=== PATIENT | female | born 1975 | race Caucasian/White ===

== ENCOUNTER 2017-07-24 06:12 | Day surgery (SDC) | payer OTHER ==
[~2017-07-24] VITALS: Ht 162.6 cm; Wt 101.6 kg
[~2017-07-24 06:12] MED LIST: LORATADINE10 MG PO; MELATIN3 MG PO; MULTIVITAMINS1 EAC8 PO; PERCOCET 7.5-31 EACH PO; RANITIDINE HCL150 MG PO
--- NOTE | 2017-07-24 09:36 | NUR ---
PT ALERT AND ORIENTED. PT WAS WAITING FOR AND WILLIE. SHE SEEMED PLEASANT, SUPPORTED BY HER WHO HAD STEPPED OUT FOR A MOMENT. PT REQUESTED PRAYER, WILL FOLLOW NEEDED
--- NOTE | 2017-07-24 11:30 | NUR ---
07/24/17 1130 Cj Roche MEDICATED FOR 6/10 CRAMPING ABDOMINAL PAIN PER EMAR.
--- NOTE | 2017-07-24 12:09 | NUR ---
ATE CRACKERS AND BREONNA, REQ PAIN MEDS FOR 5/10 PAIN. PERCOCET GIVEN.
--- NOTE | 2017-07-24 12:38 | NUR ---
PT REQUESTS TO GET UP AND TRY AND USE THE BATHROOM. SHE HAS LITTLE SUCCUESS VOIDING APPROXIMATELY 15ML. SHE REPORTS A LOT OF CRAMPING, SHE HAS ALREADY HAD PAIN PILLS.
[2017-07-24] MEDS ORDERED: IBUPROFEN800 MG PO (12:59)
[2017-07-24] MEDS ORDERED: PERCOCET 5-3251 EACH PO (12:59)
--- NOTE | 2017-07-24 13:30 | NUR ---
LE 1320: PT IS C/O WORSENING CRAMPING/PAIN IN LOWER ABDOMEN DESPITE 2 PERCOCET. PT BLADDERS SCANNED FOR APPROX. 100ML. CALL PLACED TO DR. ARZATE, SHE ORDERED PROMETHAZINE 25MG PO NOW AND OXYCODONE 5MG NOW. ORDER PUT IN COMPUTER AND PHARMACY NOTIFIED.
--- NOTE | 2017-07-24 14:07 | NUR ---
PT IS UP OOB TO BATHROOM WITH STANDBY ASSIST. PT REPORTS THAT HER PAIN IS MUCH BETTER NOW AND BEARABLE.
--- NOTE | 2017-08-06 10:16 | OR ---
[facility] [address] [facility] [place], [place] [address] Signed DATE OF OPERATION: 07/24/2017 SURGEON: Coty Arzate MD PREOPERATIVE DIAGNOSIS: 41-year-old, 3, para 3 with menorrhagia, longstanding and worsening. POSTOPERATIVE DIAGNOSIS: 41-year-old, 3, para 3 with menorrhagia, longstanding and worsening, and thickened endometrium near ostia. PROCEDURE: Hysteroscopy, dilation with MyoSure hysteroscope and NovaSure endometrial ablation. ANESTHESIA: General endotracheal per Adams Flynn CRNA. INTRAVENOUS FLUIDS: 1000 mL of Lactated Ringer's. URINE OUTPUT: 20 mL per straight cath. ESTIMATED BLOOD LOSS: 30 mL. HYSTEROSCOPE: 1500 mL in with 270 mL deficit. FINDINGS: Mildly enlarged uterus sounded to 11 cm and a mildly thickened endometrium near the ostia on both sides of the uterus. PATHOLOGY: Endometrial curettings. PROCEDURE TECHNIQUE: Patient was taken back to the operating room with IV fluids hanging. She was placed on the operating table in supine position, underwent general endotracheal anesthesia with rapid sequence intubation and was subsequently re-positioned in dorsal lithotomy Electronically Signed By: COTY ARZATE MD 08/06/17 1016 PATIENT NAME: TAMANNA GILL OPERATIVE REPORT DATE OF : 75 REPORT #: [id number] PHYSICIAN: COTY ARZATE MD PCP: ODILON MEDINA DO REPORT IS CONFIDENTIAL AND NOT TO BE RELEASED WITHOUT AUTHORIZATION [facility] [address] [place], [place] [address] Signed position in [facility]. She was then prepped and draped in normal sterile fashion and a weighted sterile speculum was placed into the vagina and a curved retractor used to visualize the cervix. A single-tooth tenaculum was placed onto the anterior lip of the cervix and the uterus was then sounded to 11 cm. It was then serially dilated and the MyoSure hysteroscope placed into the cervical canal and subsequently into the endometrial cavity to visualize the uterus. The MyoSure device was then used to remove the thickened tissue from the areas near the ostia. The hysteroscope was then removed and the NovaSure wand was then placed into the endometrial cavity, which again was measured and was consistent with an enlarged uterus with cavity itself approximately 9 cm in length, the width was 4.4 cm and the procedure went for approximately 51 seconds, the ablation. Once that was complete, the NovaSure wand was then removed and visualized and found to be smoking and blackened. All instruments were then removed from the uterus and cervix. The single-tooth tenaculum removed as well and minimal bleeding was noted. Sponge and instrument counts were correct. The patient was then awakened and extubated and taken to recovery room in stable condition. There were no complications. MD ANTHONY Campbell/ALEX /[id number] Copies: ~ Electronically Signed By: COTY ARZATE MD 08/06/17 [facility] PATIENT NAME: TAMANNA GILL OPERATIVE REPORT DATE OF : 75 REPORT #: [id number] PHYSICIAN: COTY ARZATE MD PCP: ODILON MEDINA DO REPORT IS CONFIDENTIAL AND NOT TO BE RELEASED WITHOUT AUTHORIZATION
== END 2017-07-24 14:30 | disposition home or self-care (01) ==
LOC: DS 06:12
PROVIDERS: Obstetrics & Gynecology
PROC: 0U5B8ZZ Destruction of Endometrium, Via Natural or Artificial Opening Endoscopic (ICD-10-PCS; principal; 2017-07-24 09:00)
PROC: 0UDB7ZX Extraction of Endometrium, Via Natural or Artificial Opening, Diagnostic (ICD-10-PCS; 2017-07-24 09:00)
DX: N92.0 Excessive and frequent menstruation with regular cycle (principal); R93.8 Abnormal findings on diagnostic imaging of other specified body structures; K21.9 Gastro-esophageal reflux disease without esophagitis; J30.9 Allergic rhinitis, unspecified; Z98.51 Tubal ligation status; Z87.891 Personal history of nicotine dependence; Z79.899 Other long term (current) drug therapy
CPT/HCPCS: 00944; J1885; J2405; J2704; J2765; J3010; J7120

== ENCOUNTER 2020-05-14 05:50 | Day surgery (SDC) | payer OTHER ==
[~2020-05-14] VITALS: Ht 162.6 cm; Wt 95.9 kg
--- NOTE | ~2020-05-14 | OR ---
[facility] [address] [place], [place] [address] Draft DATE OF OPERATION: 05/14/2020 SURGEON: Nina Campos DO PREOPERATIVE DIAGNOSES: 1. Abnormal uterine bleeding. 2. Dysmenorrhea. 3. Post ablation syndrome. POSTOPERATIVE DIAGNOSES: 1. Abnormal uterine bleeding. 2. Dysmenorrhea. 3. Post ablation syndrome. PROCEDURES PERFORMED: 1. Total laparoscopic hysterectomy. 2. Bilateral salpingectomy. 3. Cystoscopy. ASSISTANTS: 1. Jareth Morales MD. 2. Jenny Alanis DO. ANESTHESIA: General. ESTIMATED BLOOD LOSS: 20 mL. SPECIMENS: Uterus, cervix, and bilateral fallopian tubes. FINDINGS: Normal external genitalia with normal clitoris, urethral meatus, bilateral Rillito's and Bartholin's. Normal vagina and normal-appearing cervix. The uterus is status post endometrial ablation and the uterine cavity is ablated. On laparoscopy, status post tubal ligation with Falope rings. Normal bilateral ovaries and normal-appearing uterus. Normal bladder with bilateral ureteral jets on cystoscopy. Hemostasis at the end of the procedure. PATIENT NAME: TAMANNA GILL OPERATIVE REPORT DATE OF : 75 REPORT #: [id number] PHYSICIAN: NINA CAMPOS DO PCP: PAZ MCMILLAN PA-C REPORT IS CONFIDENTIAL AND NOT TO BE RELEASED WITHOUT AUTHORIZATION [address], [place] [address] Draft COMPLICATIONS: None. INDICATIONS: Ms. Gill is a very pleasant 44-year-old G3, P4 female, who presents with a history of abnormal uterine bleeding and dysmenorrhea. She underwent endometrial ablation in 2017, and then has developed worsening dysmenorrhea and irregular cycles. She was scheduled for a total laparoscopic hysterectomy, bilateral salpingectomy, cystoscopy. Risks, benefits, and alternatives were discussed in detail with the patient. The patient understands and wished to proceed with the procedure. TECHNIQUE: The patient was taken to the operating room. A time-out was performed to confirm correct patient and correct procedure. General anesthesia was adequately established. The patient was prepped and draped in dorsal lithotomy position with feet in Yellofin stirrups. were on and running. The patient received 2 g of Ancef preoperatively per SCIP protocol and 5000 units of heparin based on her Caprini score. A weighted speculum was placed in the vagina. The anterior lip of the cervix was grasped with an Allis clamp. The cervix was gently dilated using Hegar dilators. However, the uterine cavity was noted to be ablated and entry into the uterine cavity was not easily achieved. A Machado catheter was inserted and attention was then turned to the base of the umbilicus. The base of the umbilicus was infiltrated with 0.25% Marcaine with epinephrine and the skin was incised. The fascia was grasped with hemostats, elevated, and entered sharply with Metzenbaum scissors. Stay sutures of 0 Vicryl placed in the superior and inferior edges of the fascial incision and the peritoneum was entered bluntly. A Diaz port was then placed and pneumoperitoneum was easily established. Survey of the abdomen and pelvis was performed with the above findings. At this point, a VCare uterine manipulator was placed under direct visualization to avoid perforation. Excellent positioning of the VCare manipulator was observed and the surgeon's gloves were changed and attention was turned to the hysterectomy. A 5 mm rehab assistant port was placed under direct visualization in the left lower quadrant and an 8 mm expanding port was placed in the right lower quadrant under direct visualization. The patient is status post Falope ring tubal ligation and residual fallopian tubes were grasped, elevated, and fulgurated along the mesosalpinx using the LigaSure device. Excellent hemostasis was appreciated. The left uteroovarian ligament was fulgurated and divided and the left round ligament was fulgurated and divided. The leaves of the broad ligament were divided. The anterior leaf was brought down to the cervical cup and the bladder dissected well below the cervical cup. The posterior leaf was divided down to the uterosacral ligament and across the posterior cul-de-sac. The uterine vessels were identified, fulgurated and divided with excellent hemostasis. The process was repeated on the right with fulguration, division of the utero-ovarian ligament, round ligament, and the broad ligament was dissected off. The PATIENT NAME: TAMANNA GILL OPERATIVE REPORT DATE OF : 75 REPORT #: [id number] PHYSICIAN: NINA CAMPOS DO PCP: PAZ MCMILLAN PA-C REPORT IS CONFIDENTIAL AND NOT TO BE RELEASED WITHOUT AUTHORIZATION [facility] [address] [facility] [place] [address] Draft uterine vessels were fulgurated and divided with excellent hemostasis. Colpotomy was then performed using Sonicision device in a circumferential manner without difficulty. The uterus and cervix were delivered through the vaginal opening without difficulty and the vagina was stuffed with a wet lap and a glove to maintain pneumoperitoneum. The colpotomy was then closed using V-Loc suture with an Endostitch device with careful attention to incorporate the uterosacral ligaments and vaginal epithelium with each bite. Excellent vaginal support and hemostasis appreciated. The pelvis was irrigated and again found to be hemostatic. Pneumoperitoneum was reduced and trocars were removed. The fascia was repaired at the umbilicus with 0 Vicryl in a running nonlocked manner and secured with stay sutures. Skin was reapproximated using 4-0 Monocryl. Cystoscopy was then performed. The Machado catheter was removed and a 70-degree cystoscope was placed in the urethral meatus and advanced under direct visualization into the bladder. Normal bladder and bilateral ureteral jets were appreciated. The cystoscope was removed and a Machado catheter re-inserted. The patient was then taken to PACU in good and stable condition. Sponge, needle, and instrument counts were correct x2 at the end of the procedure. Dr. Morales and Dr. Alanis were present and participated in all portions of the procedure. Nina Campos DO JTIEN/ALEX /[id number] Copies: ~ PATIENT NAME: TAMANNA GILL OPERATIVE REPORT DATE OF : 75 REPORT #: [id number] PHYSICIAN: NINA CAMPOS DO PCP: PAZ MCMILLAN PA-C REPORT IS CONFIDENTIAL AND NOT TO BE RELEASED WITHOUT AUTHORIZATION
[~2020-05-14 05:50] MED LIST changes: +ACID-PEP20 MG PO; +EMERGEN-C 500500 MG PO; +IBUPROFEN800 MG PO; +MAG-OXIDE400 MG PO; +OSTERA TABLET1 EACH PO; +PERCOCET 5-3251 EACH PO
[2020-05-14] MEDS ORDERED: LEVO-T50 MCG PO (06:19)
--- NOTE | 2020-05-14 09:18 | NUR ---
05/14/20 0918 Karlene,Dia 0912 PT ARRIVED TO PACU ON 6L VIA MASK, PT ASLEEP WITH ORAL AIRWAY IN PLACE. RESP EVEN AND UNLABROED, PT NONAROUSABLE TO TACTILE STIMULI AND VSS.
[2020-05-14] MEDS ORDERED: MOTRIN IB200 MG PO (10:24)
[2020-05-14] MEDS ORDERED: NORCO 5-325 TA1 EACH PO (10:24)
--- NOTE | 2020-05-14 10:54 | NUR ---
LE 1040: PATIENT PUSHES HER CALL LIGHT AND REPORTS "THE PAIN HASN'T LET UP AT ALL." CALL TO DR. MARIE IN OR 4. SPOKE WITH DO MAGANA CRNA. NEW ORDERS ARE RECEIVED. LE 1050: PATIENT CONTINUES TO HAVE A GRIMACE ON HER FACE 100% OF THE TIME. SHE IS MOANING WITH EVERY EXHALE. PRN GIVEN FOR PAIN. I REMAIN IN THE ROOM WITH PATIENT. CONTINUOUS PULSE OXIMETER IS IN PLACE.
--- NOTE | 2020-05-14 10:54 | NUR ---
LE 0950: PATIENT IS UP TO THE BATHROOM WITH MY STANDBY ASSIST. PATIENT IS UNABLE TO VOID. MASTER-PAD AND STRETCH KNIT BRIEFS ARE GIVEN. ICED WATER IS GIVEN. SPOUSE IS AT THE BEDSIDE. PATIENT IS BACK IN BED. JAIRO HUGGER IS ON WARM. CALL LIGHT IS WITHIN REACH.
--- NOTE | 2020-05-14 11:03 | NUR ---
ICE TO ABDOMEN. PATIENT'S OXYGEN SATURATION DROPS TO 92% ON RA. I REMAIN IN THE ROOM WITH THE PATIENT. CONTINUOUS PULSE OXIMETER IN PLACE.
--- NOTE | 2020-05-14 11:06 | NUR ---
PATIENT'S RESPIRATIONS SLOW TO 9/MINUTE. OXYGEN SATURATION DECREASES TO 88% - 94% ON RA. WILL CONTINUE TO MONITOR.
--- NOTE | 2020-05-14 11:10 | NUR ---
HOB ELEVATED. PATIENT CONTINUES TO HAVE A DRY COUGH. PATIENT TAKES A SIP OF WATER AND TOLERATES THAT WELL.
--- NOTE | 2020-05-14 11:13 | NUR ---
IV OFIRMEV IS INFUSED. PATIENT'S RESPIRATIONS HAVE SLOWED TO 6/MINUTE. I REMAIN PRESENT WITH HER. CONTINUOUS PULSE OXIMETER IN PLACE. OXYGEN SATURATION 92% ON RA. PULSE 75. BP 123/71.
--- NOTE | 2020-05-14 11:54 | NUR ---
PATIENT IS ASLEEP. RESPIRATIONS ARE EVEN AND UNLABORED. SPOUSE REMAINS AT THE BEDSIDE. CONTINUOUS PULSE OXIMETER REMAINS IN PLACE. PATIENT DOES NOT WAKE WHEN VITALS ARE TAKEN. CALL LIGHT REMAINS WITHIN REACH.
--- NOTE | 2020-05-14 13:12 | NUR ---
PATIENT IS UP TO THE BATHROOM WITH MY STANDBY. SHE AMBULATES WELL AND VOIDS 500 ML CLEAR, YELLOW URINE. SHE IS BACK IN BED. JAIRO YAJAIRAGGER REMAINS ON WARM. PUDDING AND MORE ICED WATER GIVEN. PATIENT'S SPOUSE REMAINS AT THE BEDSIDE. CALL LIGHT IS WITHIN REACH.
--- NOTE | 2020-05-14 13:59 | NUR ---
LE 1335: PATIENT REPORTS NO NAUSEA AND ASKS FOR THE 2ND PRN "MY PAIN IS GOING UP." DISCHARGE INSTRUCTIONS ARE GIVEN AND SHE AND HER SPOUSE VERBALIZE UNDERSTANDING. PATIENT IS GETTING DRESSED IN THE PRESENCE OF HER . PATIENT TRANSFERS HERSELF TO THE WHEELCHAIR AND THEN TO PERSONAL VEHICLE AND SHE TOLERATES THAT WELL.
== END 2020-05-14 13:50 | disposition home or self-care (01) ==
LOC: DS 05:50 → OPS 05:50 → DS 06:45 → OPS 13:50
PROVIDERS: ATTEND Obstetrics & Gynecology
PROC: 0UT94ZZ Resection of Uterus, Percutaneous Endoscopic Approach (ICD-10-PCS; principal; 2020-05-14 06:45)
PROC: 0UT74ZZ Resection of Bilateral Fallopian Tubes, Percutaneous Endoscopic Approach (ICD-10-PCS; 2020-05-14 06:45)
DX: N99.85 Post endometrial ablation syndrome (principal); N83.8 Other noninflammatory disorders of ovary, fallopian tube and broad ligament; N80.0 Endometriosis of uterus; D26.1 Other benign neoplasm of corpus uteri; K21.9 Gastro-esophageal reflux disease without esophagitis; J30.2 Other seasonal allergic rhinitis; E03.9 Hypothyroidism, unspecified; Z98.51 Tubal ligation status; Z79.899 Other long term (current) drug therapy; Z79.890 Hormone replacement therapy; Z88.1 Allergy status to other antibiotic agents; Z88.2 Allergy status to sulfonamides; Z87.891 Personal history of nicotine dependence
CPT/HCPCS: 00840; 36415; J0131; J0690; J1100; J1170; J1644; J1885; J2001; J2250; J2270; J2405; J2550; J2704; J3010; J7121

== ENCOUNTER 2020-11-03 09:00 | Emergency (ER) | payer OTHER ==
[~2020-11-03] VITALS: Ht 162.6 cm; Wt 95.7 kg
[~2020-11-03 09:00] MED LIST changes: +LEVO-T50 MCG PO; +MOTRIN IB200 MG PO; +NORCO 5-325 TA1 EACH PO
--- NOTE | 2020-11-04 13:33 | EKG ---
[facility] [address] [facility] [place] [address] Signed Normal sinus rhythm Low voltage QRS Incomplete right bundle branch block Left anterior fascicular block Abnormal ECG No previous ECGs available Confirmed by AMRIT MOREIRA MD ([id number]) on 11/04/2020 1:33:33 PM Electronically Signed By: AMRIT MOREIRA MD 11/04/20 1333 PATIENT NAME: TAMANNA GILL CHRISTY Electrocardiogram DATE OF : 75 PHYSICIAN: AMRIT MOREIRA MD REPORT #: [id number] REPORT IS CONFIDENTIAL AND NOT TO BE RELEASED WITHOUT AUTHORIZATION
== END 2020-11-03 11:38 | disposition home or self-care (01) ==
LOC: ED 09:00
DX: R07.89 Other chest pain (principal); E03.9 Hypothyroidism, unspecified; K21.9 Gastro-esophageal reflux disease without esophagitis; Z87.891 Personal history of nicotine dependence; Z88.2 Allergy status to sulfonamides; Z88.1 Allergy status to other antibiotic agents; Z79.899 Other long term (current) drug therapy
CPT/HCPCS: 71045; 80053; 83735; 84484; 85025; 85379; 93005; 93010; 99285-25